=== PATIENT | female | born 1965 | race Caucasian/White ===

== ENCOUNTER 2020-03-28 13:26 | Outpatient (CLI) | payer BC, SELFPAY ==
--- NOTE | 2020-03-28 | ECHO_ITS ---
Patient Info Name: Sarah Esqueda Age: 55 years : 1965 Gender: Female Ht: 64 in Wt: 155 lbs BSA: 1.80 m2 HR: 66 bpm BP: 150 / 91 mmHg Heart Rhythm: Sinus Rhythm Technical Quality: Good Exam Date: 03/28/2020 2:03 PM Exam Location: [facility] Patient Status: Outpatient Admit Date: 03/28/2020 Staff Ordering Physician: Connor Desai MD Starter Mechanic: Khadra Broussard RDCS Attending Provider: Connor Desai MD Referring Physician: Lloyd VO; Exam Type: CA echo doppler color flow Study Info Indications - leaky valve Complete two-dimensional, color flow and Doppler transthoracic echocardiogram is performed. Summary 1. The mitral valve has mildly thickened leaflets. There is mild prolapse of the anterior and moderate prolapse of the posterior leaflet.. 2. Left ventricular systolic function is normal, estimated at 65-70%. 3. The left ventricular diastolic function is grade II diastolic dysfunction. 4. Left atrial chamber dimension is moderately enlarged. 5. There is severe mitral valve regurgitation. 6. Normal inferior vena cava with >50% collapse upon inspiration consistent with normal right atrial pressure, 5 mmHg. 7. There is a small to moderate pericardial effusion measured up to 1.3cm. Recommendations * Recommend transesophageal echocardiogram. Left Ventricle Left ventricular chamber dimension is normal. Left ventricular systolic function is normal, estimated at 65-70%. There is no increased left ventricular wall thickness. The left ventricular diastolic function is grade II diastolic dysfunction. Right Ventricle Right ventricular chamber dimension is normal. Right ventricular systolic function is normal. Left Atria Left atrial chamber dimension is moderately enlarged. Right Atria Right atrial chamber dimension is normal. Aortic Valve The aortic valve is probable trileaflet. There is no aortic valve stenosis. There is no aortic valve regurgitation. Pulmonic Valve The pulmonic valve is not well visualized. There is trace pulmonic regurgitation. Mitral Valve The mitral valve has mildly thickened leaflets. There is mild prolapse of the anterior and moderate prolapse of the posterior leaflet.. There is severe mitral valve regurgitation. Tricuspid Valve The tricuspid valve leaflets are normal. There is trace tricuspid valve regurgitation. No pulmonary hypertension, estimated pulmonary arterial systolic pressure is 30 mmHg. Pericardium/Pleural The pericardium appears normal. There is a small to moderate pericardial effusion measured up to 1.3cm. Inferior Vena Cava Normal inferior vena cava with >50% collapse upon inspiration consistent with normal right atrial pressure, 5 mmHg. Aorta The aortic root size at the sinus of Valsalva is normal. Left Ventricular Outflow Tract Name Value Normal LVOT 2D LVOT Diameter 2.0 cm LVOT Doppler LVOT Peak Gradient 6 mmHg LVOT Mean Gradient 3 mmHg LVOT VTI 21 cm LVOT VTI/AV VTI Ratio 0.7
== END 2020-03-28 13:27 | disposition home or self-care (01) ==
PROVIDERS: PCP Internal Medicine; Visit Provider Internal Medicine
DX: I34.9 Nonrheumatic mitral valve disorder, unspecified (principal)
CPT/HCPCS: 93306

== ENCOUNTER → 2020-06-06 13:24 | Outpatient (CLI) | payer BC, SELFPAY ==
--- NOTE | ~2020-06-06 | DEXA_ITS ---
Bone Density Report Name: Sarah Esqueda Age: 55 Sex: Female Ethnicity: White Date of : 1965 Indication: osteopenia; monitoring treatment; prior fracture; postmenopausal Referring Provider: Connor Desai Study: Bone densitometry was performed. Exam Date: June 06, 2020 Accession number: [id number] Bone Density: Region BMD T-score Z-score Classification AP Spine (L1-L4) 0.969 -0.7 0.5 Normal Femoral Neck (Left) 0.661 -1.7 -0.5 Osteopenia Total Hip (Left) 0.807 -1.1 -0.3 Osteopenia Femoral Neck (Right) 0.650 -1.8 -0.6 Osteopenia Total Hip (Right) 0.812 -1.1 -0.3 Osteopenia Total Hip Mean 0.810 -1.1 -0.3 Osteopenia World Health Organization criteria for BMD impression classify patients as: Normal (T-score at or above -1.0), Osteopenia (T-score between -1.0 and -2.5), or Osteoporosis (T-score at or below -2.5). 10-year Fracture Risk: FRAX not reported because: Treated for osteoporosis Previous Exams: Region Exam Age BMD T-score BMD Change BMD Change Date g/cm2 vs Baseline vs Previous AP Spine(L1-L4) 06/06/2020 55 0.969 -0.7 0.087* 0.004 10/23/2017 52 0.965 -0.7 0.083* 0.047* 06/09/2015 50 0.918 -1.2 0.035* 0.023* 05/20/2013 48 0.894 -1.4 0.012 0.012 05/18/2012 47 0.883 -1.5 Total Hip(Left) 06/06/2020 55 0.807 -1.1 0.041* 0.019 10/23/2017 52 0.788 -1.3 0.022 0.018 06/09/2015 50 0.771 -1.4 0.005 0.032* 05/20/2013 48 0.738 -1.7 -0.028* -0.028* 05/18/2012 47 0.766 -1.4 Total Hip(Right) 06/06/2020 55 0.812 -1.1 0.049* 0.020 10/23/2017 52 0.792 -1.2 0.029* 0.040* 06/09/2015 50 0.752 -1.6 -0.011 -0.009 05/20/2013 48 0.761 -1.5 -0.002 -0.002 05/18/2012 47 0.763 -1.5 *Denotes significance at 95% confidence level, LSC for AP Spine = 0.022 g/cm2, LSC for Total Hip = 0.027 g/cm2 Clinical Information Provided by Patient: Has had a low trauma fracture Has 3 or more alcoholic drinks per day Is being treated for osteoporosis Has used the following medications: Boniva (i.e. ibandronate), Vitamin D, MTV Patient maximum height was 65 Menopause Age: 43 No regular weight bearing exercise Does not regularly consume dairy products Drinks caffeinated beverages Onset of menses at age 12 Number of children 1
--- NOTE | ~2020-06-06 | MM_ITS ---
EXAMINATION: MM screening maxx BI w maximiliano HISTORY: Screening mammogram TECHNIQUE: Craniocaudal and mediolateral oblique 3-D tomosynthesis images were obtained and synthetic 2-D images were generated. CAD analysis was submitted and interpreted. COMPARISON: 02/05/2019, 10/23/2017, 10/20/2016 bilateral digital screening mammogram examinations BREAST PARENCHYMAL COMPOSITION: There are scattered areas of fibroglandular density. FINDINGS: There is no evidence of suspicious mass, calcification, or architectural distortion to sugg est malignancy in either breast. There has been no suspicious interval change. IMPRESSION: 1. No mammographic evidence of malignancy. 2. Recommend routine screening mammography in one year. 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
== END ==
PROVIDERS: PCP Internal Medicine; Visit Provider Internal Medicine
DX: Z12.31 Encounter for screening mammogram for malignant neoplasm of breast (principal); M81.0 Age-related osteoporosis without current pathological fracture; M85.852 Other specified disorders of bone density and structure, left thigh; M85.851 Other specified disorders of bone density and structure, right thigh
CPT/HCPCS: 77063; 77067; 77080

== ENCOUNTER 2023-09-02 12:27 | Outpatient (CLI) | payer BC, SELFPAY ==
--- NOTE | 2023-09-02 | ECHO_ITS ---
Patient Info Name: Sarah Esqueda Age: 58 years : 1965 Gender: Female Ht: 65 in Wt: 160 lbs BSA: 1.84 m2 HR: 80 bpm Technical Quality: Good Exam Date: 09/02/2023 1:03 PM Exam Location: [facility] Patient Status: Outpatient Admit Date: 09/02/2023 Staff Ordering Physician: Connor Desai MD Inspector Handbag Frames: Miguel Angel Miller RDCS Attending Provider: Connor Desai MD Referring Physician: Lloyd VO; Exam Type: CA echo doppler color flow Study Info Indications I34.9 - Nonrheumatic mitral valve disorder, unspecified Complete two-dimensional, color flow and Doppler transthoracic echocardiogram is performed. Summary 1. Complete two-dimensional, color flow and Doppler transthoracic echocardiogram is performed. 2. Left ventricular chamber dimension is normal. 3. Left ventricular systolic function is normal, estimated at 65-70%. 4. The left ventricular diastolic function is abnormal. 5. E/e' 20 is elevated. 6. Left atrial chamber dimension is severely enlarged. 7. The mitral valve has mild anterior prolapse and severe posterior prolapse. 8. There is moderate mitral valve regurgitation. 9. There is mild tricuspid valve regurgitation. 10. No pulmonary hypertension, estimated pulmonary arterial systolic pressure is 37 mmHg. 11. There is small circumferential pericardial effusion. Left Ventricle E/e' 20 is elevated. Left ventricular chamber dimension is normal. Left ventricular systolic function is normal, estimated at 65-70%. The left ventricular diastolic function is abnormal. Right Ventricle Right ventricular systolic function is normal and with normal TAPSE 2.9 cm. Right ventricular chamber dimension is normal. Left Atria Left atrial chamber dimension is severely enlarged. Right Atria Right atrial chamber dimension is normal. Aortic Valve The aortic valve is trileaflet. There is no aortic valve stenosis. There is no aortic valve regurgitation. Pulmonic Valve There is no pulmonic regurgitation. Mitral Valve The mitral valve has mild anterior prolapse and severe posterior prolapse. There is no mitral valve stenosis. There is moderate mitral valve regurgitation. Tricuspid Valve There is mild tricuspid valve regurgitation. No pulmonary hypertension, estimated pulmonary arterial systolic pressure is 37 mmHg. Pericardium/Pleural No cardiac tamponade. There is small circumferential pericardial effusion. Inferior Vena Cava Normal inferior vena cava with >50% collapse upon inspiration consistent with normal right atrial pressure, 5 mmHg. Aorta The aortic root size at the sinus of Valsalva is normal. Left Ventricular Outflow Tract Name Value Normal LVOT 2D LVOT Diameter 1.9 cm LVOT Doppler LVOT Peak Gradient 6 mmHg LVOT Mean Gradient 3 mmHg LVOT VTI 20 cm LVOT VTI/AV VTI Ratio 1.1 LVOT Stroke Volume 58 ml LVOT CO 4.1 l/min LVOT CI 2.2 l/min/m2 Pulmonic Valve Name Value
== END 2023-09-02 12:28 | disposition home or self-care (01) ==
PROVIDERS: PCP Internal Medicine; Visit Provider Internal Medicine
DX: I36.1 Nonrheumatic tricuspid (valve) insufficiency (principal); I34.0 Nonrheumatic mitral (valve) insufficiency
CPT/HCPCS: 93306

== ENCOUNTER 2024-10-22 10:17 | Outpatient (CLI) | payer BC, SELFPAY ==
--- NOTE | ~2024-10-22 | DEXA_ITS ---
Bone Density Report Name: DORA SHEARER Age: 59 Sex: Female Ethnicity: White Date of : 1965 Indication: postmenopausal; screening for osteoporosis; parental hip fracture; Referring Provider: BERNIE SAMS Study: Bone densitometry was performed. Exam Date: October 22, 2024 Accession number: [id number] Bone Density: Region BMD T-score Z-score Classification AP Spine(L1-L4) 0.990 -0.5 1.0 Normal Femoral Neck (Left) 0.643 -1.9 -0.5 Osteopenia Total Hip (Left) 0.854 -0.7 0.3 Normal Femoral Neck (Right) 0.621 -2.1 -0.7 Osteopenia Total Hip (Right) 0.847 -0.8 0.3 Normal Total Hip Mean 0.850 -0.8 0.3 Normal World Health Organization criteria for BMD impression classify patients as: Normal (T-score at or above -1.0), Osteopenia (T-score between -1.0 and -2.5), or Osteoporosis (T-score at or below -2.5). 10-year Fracture Risk: FRAX not reported because: Treated for osteoporosis Clinical Information Provided by Patient: Parent has had a hip fracture Is being treated for osteoporosis Has used the following medications: Boniva (i.e. ibandronate) Patient maximum height was 66 Menopause Age: 44 No regular weight bearing exercise Drinks caffeinated beverages Onset of menses at age 12 Number of children 1 Impression: The patient has low bone mass, based on the Right Femoral Neck T-score. The patient has risk factors, including: parental hip fracture. Discussion: It is important to ask patients whether they are taking their medications and to encourage continued and appropriate compliance with their osteoporosis therapies to reduce fracture risk. It is also important to review their risk factors and encourage appropriate calcium and vitamin D intakes, exercise, fall prevention and other lifestyle measures. Follow-Up: Consider a repeat BMD and Vertebral Fracture Assessment (VFA) exam in 2 years or sooner if medically necessary, to reassess this patient's status. Reported by: ESPERANZA on 10/22/2024 11:03:00 AM. Reviewed, dictated and finalized at location A.
--- NOTE | ~2024-10-22 | MM_ITS ---
EXAMINATION: MM screening maxx BI w maximiliano HISTORY: Screening mammogram, family history of breast cancer in her sister. TECHNIQUE: Craniocaudal and mediolateral oblique 3-D tomosynthesis images were obtained and synthetic 2-D images were generated. CAD analysis was submitted and interpreted. COMPARISON: 06/06/2020, 02/05/2019 BREAST PARENCHYMAL COMPOSITION:Not Dense. There are scattered areas of fibroglandular density. FINDINGS: No suspicious mass, calcification, or architectural distortion are identified in either tracey ast to suggest malignancy. There has been no suspicious interval change. IMPRESSION: No mammographic evidence of malignancy. Recommend routine screening mammography in one year. BI-RADS Category 1: Negative Reviewed, dictated and finalized at location .
== END 2024-10-22 10:18 | disposition home or self-care (01) ==
LOC: ANHIMG 10:20
PROVIDERS: PCP Internal Medicine; Visit Provider Internal Medicine
DX: Z12.31 Encounter for screening mammogram for malignant neoplasm of breast (principal); M81.0 Age-related osteoporosis without current pathological fracture; M85.852 Other specified disorders of bone density and structure, left thigh; M85.851 Other specified disorders of bone density and structure, right thigh
CPT/HCPCS: 77063; 77067; 77080